=== PATIENT | female | born 1960 | race African-American/Black ===

== ENCOUNTER 2018-01-05 17:20 | Emergency (ER) | payer OTHER ==
[~2018-01-05] VITALS: Ht 175.3 cm; Wt 81.6 kg
[~2018-01-05 17:20] MED LIST: ASPIRIN81 MG; ATORVASTATIN CA20 MG PO; AZITHROMYCIN250 MG PO; CLONIDINE HCL0.1 MG PO; LISINOPRIL5 MG; TESSALON PERLE100 MG
--- OUTSIDE RECORDS SUMMARY | 2018-01-05 17:23 | XMS REPORT ---
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 Allergies, Adverse Reactions, Alerts This patient has no known allergies or adverse reactions. Medications This patient has no known medications. Encounters Start Date/Time End Date/Time Encounter Type Admission Type Attending [facility] Care Department Encounter ID 2017-06-04 00:00:00 2017-06-04 00:00:00 Outpatient [facility] [id number] 2017-05-25 00:00:00 2017-05-25 00:00:00 Outpatient [facility] [id number] 2017-04-23 10:09:39 2017-04-23 10:09:39 Outpatient [facility] [id number] 2017-04-23 10:02:23 2017-04-23 10:02:23 Outpatient [facility] [id number] 2017-04-23 08:25:18 2017-04-23 08:25:18 Outpatient [facility] [id number] 2017-04-16 00:00:00 2017-04-16 00:00:00 Outpatient [facility] [id number] 2017-04-09 00:00:00 2017-04-09 00:00:00 Outpatient [facility] [id number] 2017-04-08 00:00:00 2017-04-08 00:00:00 Outpatient [facility] [id number] 2017-04-06 00:00:00 2017-04-06 00:00:00 Outpatient [facility] [id number] 2017-04-02 00:00:00 2017-04-02 00:00:00 Outpatient [facility] [id number] 2017-03-18 06:44:18 2017-03-18 06:44:18 Outpatient [facility] [id number] 2017-03-05 00:00:00 2017-03-05 00:00:00 Outpatient [facility] [id number] 2017-03-03 14:35:40 2017-03-03 14:35:40 Outpatient [facility] [id number] 2017-02-13 12:43:56 2017-02-13 12:43:56 Outpatient [facility] [id number] 2017-01-09 09:31:40 2017-01-09 09:31:40 Outpatient [facility] [id number] 2017-01-09 09:31:07 2017-01-09 09:31:07 Outpatient [facility] [id number] 2017-01-09 08:25:39 2017-01-09 08:25:39 Outpatient [facility] [id number] Results Test Description Test Time Test Comments Text Results Atomic Results Result Comments CT CHEST W [place] [address] Patient Name: VARSHA FOOTE MR #: [id number] : 1960 Age/Sex: 56/F Req #: [id number] Adm Physician: Ordered by: JAY PEREZ MD Report #: [id number] Location: ER Room/Bed: Procedure: [id number] CT/CT CHEST W Exam Date: 04/24/17 Exam Time: 0200 REPORT STATUS: Signed EXAM: CT Chest WITH contrast 04/24/2017 1:34 AM INDICATION: Pulmonary embolism, shortness of breath, positive d-dimer COMPARISON: None TECHNIQUE: Chest was scanned utilizing a multidetector helical scanner from the lung apex through the level of the adrenal glands without administration of IV contrast. Coronal and sagittal reformations were obtained. Pulmonary embolism protocol protocol was performed. IV CONTRAST: 100 and mL of Isovue-370 RADIATION DOSE: Total DLP: 464.16 mGy*cm Estimated effective dose: (DLP x 0.014 x size factor ) mSv COMPLICATIONS: None FINDINGS: LINES/ TUBES: None. LUNGS AND AIRWAYS: The lungs are unremarkable. Airways are normal. PLEURA: The pleural spaces are clear. HEART AND MEDIASTINUM: The thyroid gland is normal. No mediastinal, hilar or axillary lymphadenopathy. The heart is mildly enlarged.. There is no pericardial effusion. The pulmonary artery is dilated measuring 4.1 cm in diameter compatible with pulmonary hypertension. The maximum dimension of the proximal ascending aorta is 4.3 cm. No evidence of pulmonary embolism. UPPER ABDOMEN: Cholecystectomy. Visualized liver, spleen, pancreas, upper pole of the kidneys and GI tract are normal. Postsurgical changes at the GE junction. BONES: The visualized bony thorax is within normal limits. SOFT TISSUES: Unremarkable. IMPRESSION: 1. No evidence of acute pulmonary embolism to the segmental level. 2. Dilated pulmonary artery suggestive of primary pulmonary hypertension. 3. Mild enlargement of the heart Signed by: Dr. Kwadwo Green M.D. on 04/24/2017 2:28 AM Dictated By: KWADWO TESFAYE MD 7 Transcribed By: ZION on 04/24/17227 COPY TO: JAY PEREZ MD
--- OUTSIDE RECORDS SUMMARY | 2018-01-05 17:23 | XMS REPORT | Clinical Summary ---
Author Author [facility] Address Unknown Phone Unavailable Care Team Providers Care Agent Producer Name Role Phone Asked, Pcp PCP Unavailable Allergies Active Allergy Reactions Severity Noted Date Comments Metronidazole GI Intolerance High 09/07/2017 Current Medications Prescription Sig. Disp. Refills Start End Date Status Date clonIDINE HCl (CATAPRES) TK 1 T PO BID 180 tablet 1 09/07/19 Active 0.2 MG tabletIndications: 18 Essential hypertension multivitamin with Take 1 tablet by mouth Active minerals tablet daily. ibuprofen (ADVIL) 200 MG Take 200 mg by mouth Active tablet every 6 (six) hours as needed for mild pain. clonIDINE HCl (CATAPRES) TK 1 T PO BID 0 08/28/19 09/07/19 Discontin 0.2 MG tablet 18 18 ued hydroCHLOROthiazide TK 1 T PO QD 1 07/24/20 09/07/19 Discontin (HYDRODIURIL) 25 MG 17 18 ued tablet hydroCHLOROthiazide TK 1 T PO QD 90 tablet 1 09/07/19 11/13/19 Discontin (HYDRODIURIL) 25 MG 18 18 ued tabletIndications: Essential hypertension clindamycin (CLEOCIN HCL) Take 1 capsule (300 mg 14 capsule 0 09/14/19 300 MG total) by mouth 2 (two) 18 18 capsuleIndications: Acute times a day for 7 days. vaginitis Active Problems Problem Noted Date Chronic hip pain, left 11/12/2017 Encounters Date Type Specialty Care Team Description 12/02/2017 Telephone Gastroenterology Qian Garg MA 11/12/2017 Office Visit Orthopedic Surgery Dejuan Moore MD Chronic left hip pain (Primary Dx) 10/02/2017 Telephone Family Medicine Karla Barbosa MA 09/07/2017 Office Visit Family Medicine Leigh Sampson PA Essential hypertension (Primary Dx); Acute vaginitis after 01/04/2017 Family History Medical History Relation Name Comments Hypertension Mother Relation Name Status Comments Father Mother Alive Social History Tobacco Use Types Packs/Day Years Used Date Never Smoker Smokeless Tobacco: Never Used Alcohol Use Drinks/Week oz/Week Comments No Sex Assigned at Date Recorded Not on file Last Filed Vital Signs Vital Sign Reading Time Taken Blood Pressure 152/100 09/07/2017 9:23 AM MINING CONSULTANT Pulse 80 09/07/2017 9:23 AM MINING CONSULTANT Temperature 36.6 C (97.9 F) 09/07/2017 9:23 AM MINING CONSULTANT Respiratory Rate - - Oxygen Saturation 100% 09/07/2017 9:23 AM MINING CONSULTANT Inhaled Oxygen - - Concentration Weight 83 kg (183 lb) 11/12/2017 8:41 AM CDT Height 175.3 cm (5' 9") 11/12/2017 8:41 AM CDT Body Mass Index 27.02 11/12/2017 8:41 AM CDT Plan of Treatment Health Maintenance Due Date Last Done Comments CERVICAL CANCER SCREENING 1980 COLON CANCER SCREENING 2009 SHINGRIX VACCINE (#1) 2009 BREAST CANCER SCREENING 06/13/2017 06/13/2015, 06/13/2015 INFLUENZA VACCINE 03/17/2018 Procedures Procedure Name Priority Date/Time Associated Diagnosis Comments [place] ARTHROCENTESIS Routine 11/12/2017 Chronic left hip pain Results for this ASPIR&/INJ MAJOR JT/BURSA 8:00 AM CDT procedure are in the W/O US results section. after 01/04/2017 Results * Large Joint Arthrocentesis (11/12/2017 8:00 AM) Narrative Dejuan Moore MD 11/12/20179:30 AM Large Joint Arthrocentesis Consent given by: patient Supporting Documentation Indications: pain Procedure Details Location: hip - L greater trochanteric bursa Left side: Needle size: 22 G Approach: lateral Left hip medications administered: 80 mg methylPREDNISolone acetate 80 mg/mL; 3 mL lidocaine 10 mg/mL (1 %) * Urinalysis, automated with microscopy (09/14/2017 10:42 AM) Component Value Ref Range Color, UA DARK YELLOW YELLOW Appearance CLEAR CLEAR Specific gravity, urine 1.023 1.001 - 1.035 pH, urine 6.5 5.0 - 8.0 Glucose, urine NEGATIVE NEGATIVE Bilirubin, UA NEGATIVE NEGATIVE Ketones, UA NEGATIVE NEGATIVE Occult blood, urine NEGATIVE NEGATIVE Protein, UA NEGATIVE NEGATIVE Nitrite, UA NEGATIVE NEGATIVE Leukocyte esterase, UA NEGATIVE NEGATIVE WBC, UA NONE SEEN < OR=5 /HPF RBC, UA NONE SEEN < OR=2 /HPF Squamous epithelial 0-5 < OR=5 /HPF cells, UA Bacteria, UA NONE SEEN NONE SEEN /HPF Hyaline casts, UA NONE SEEN NONE SEEN /LPF Specimen Performing Laboratory Urine [facility] Narrative SPLIT 09/14/2017 FROM [id number] * CBC with platelet and differential (09/14/2017 8:22 AM) Component Value Ref Range WBC 3.4 (L) 3.8 - 10.8 Thousand/uL RBC 4.74 3.80 - 5.10 Million/uL HGB 13.7 11.7 - 15.5 g/dL HCT 41.2 35.0 - 45.0 % MCV 86.9 80.0 - 100.0 fL MCH 28.9 27.0 - 33.0 pg MCHC 33.3 32.0 - 36.0 g/dL RDW 12.3 11.0 - 15.0 % Platelet count 181 140 - 400 Thousand/uL MPV 10.5 7.5 - 12.5 fL Neutrophils, absolute 1,459 (L) 1,500 - 7,800 cells/uL Lymphocytes, absolute 1,493 850 - 3,900 cells/uL Monocytes, absolute 320 200 - 950 cells/uL Eosinophils, absolute 109 15 - 500 cells/uL Basophils, absolute 20 0 - 200 cells/uL Neutrophils 42.9 % Lymphocytes 43.9 % Monocytes 9.4 % Eosinophils 3.2 % Basophils + RC 0.6 % Specimen Performing Laboratory Blood [facility] Narrative FASTING:YES PATIENT UNABLE TO VOID; ADVISED TO RETURN FOR COLLECTION. FASTING: YES * Thyroid stimulating hormone (09/14/2017 8:22 AM) Component Value Ref Range TSH 2.72 0.40 - 4.50 mIU/L Specimen Performing Laboratory Blood [facility] Narrative FASTING:YES PATIENT UNABLE TO VOID; ADVISED TO RETURN FOR COLLECTION. FASTING: YES * Hepatic function panel (09/14/2017 8:22 AM) Component Value Ref Range Protein 6.8 6.1 - 8.1 g/dL Albumin, S 3.9 3.6 - 5.1 g/dL Globulin, total 2.9 1.9 - 3.7 g/dL (calc) Albumin/globulin ratio 1.3 1.0 - 2.5 (calc) Total bilirubin 0.7 0.2 - 1.2 mg/dL Bilirubin direct 0.1 < OR=0.2 mg/dL Bilirubin, indirect 0.6 0.2 - 1.2 mg/dL (calc) Alkaline phosphatase 91 33 - 130 U/L AST 18 10 - 35 U/L ALT 13 6 - 29 U/L Specimen Performing Laboratory Blood [facility] Narrative FASTING:YES PATIENT UNABLE TO VOID; ADVISED TO RETURN FOR COLLECTION. FASTING: YES * Lipid panel (09/14/2017 8:22 AM) Component Value Ref Range Cholesterol, total 225 (H) <200 mg/dL HDL cholesterol 70 >50 mg/dL Triglycerides 111 <150 mg/dL LDL cholesterol 133 (H) mg/dL (calc) calculated Comment: Reference range: <100 Desirable range <100 mg/dL for patients with CHD or diabetes and <70 mg/dL for diabetic patients with known heart disease. LDL-C is now calculated using the Naima calculation, which is a validated novel method providing better accuracy than the Friedewald equation in the estimation of LDL-C. Raul WIGGINS et al. TEVIN. 2013;310(19): 2026-4051 (http://education.gBox.Believe.in/faq/TMQ020) Cholesterol/HDL ratio 3.2 <5.0 (calc) Non-HDL cholesterol 155 (H) <130 mg/dL (calc) Comment: For patients with diabetes plus 1 major ASCVD risk factor, treating to a non-HDL-C goal of <100 mg/dL (LDL-C of <70 mg/dL) is considered a therapeutic option. Specimen Performing Laboratory Blood [facility] Narrative FASTING:YES PATIENT UNABLE TO VOID; ADVISED TO RETURN FOR COLLECTION. FASTING: YES * Basic metabolic panel (09/14/2017 8:22 AM) Component Value Ref Range Glucose 114 (H) 65 - 99 mg/dL Comment: Fasting reference interval For someone without known diabetes, a glucose value between 100 and 125 mg/dL is consistent with prediabetes and should be confirmed with a follow-up test. BUN, whole blood 13 7 - 25 mg/dL Creatinine 0.78 0.50 - 1.05 mg/dL Comment: For patients >49 years of age, the reference limit for Creatinine is approximately 13% higher for people identified as -Macanese. EGFR Non-Afr. Macanese 84 > OR=60 mL/min/1.73m2 EGFR 97 > OR=60 mL/min/1.73m2 BUN/creatinine ratio NOT APPLICABLE 6 - 22 (calc) Sodium 140 135 - 146 mmol/L Potassium 4.2 3.5 - 5.3 mmol/L Chloride 101 98 - 110 mmol/L CO2 33 (H) 20 - 31 mmol/L Calcium 9.2 8.6 - 10.4 mg/dL Specimen Performing Laboratory Blood [facility] Narrative FASTING:YES PATIENT UNABLE TO VOID; ADVISED TO RETURN FOR COLLECTION. FASTING: YES after 01/04/2017 Insurance Payer Benefit Subscriber ID Type Phone Address Plan / Group [employer] C[employer] OPEN xxxxxxxxxxx HMO ACCESS/NET WORK
[2018-01-05] MEDS ORDERED: SODIUM CHLORIDE 0.9% 1000ML 1,000 ML IV STA (17:34)
[2018-01-05] MEDS ORDERED: METOCLOPRAMIDE HCL 10 MG/2ML VIAL IV ONE (17:45)
[2018-01-05] MEDS ORDERED: DIPHENHYDRAMINE HCL INJ 50 MG/ML VIAL IV ONE (17:45)
[2018-01-05] MEDS ORDERED: KETOROLAC TROMETHAMINE 30 MG/ML VIAL IV NR (17:45)
--- NOTE | 2018-01-05 18:27 | Diagnostic Imaging Report ---
EXAMINATION: Head CT HISTORY: Left-sided headache, dizziness, right leg burning COMPARISON: None. TECHNIQUE: Multidetector axial images were obtained without contrast from the foramen magnum to the vertex . The images were reconstructed using brain and bone algorithms. Thin section brain images were reformatted into coronal and sagittal planes. Intravenous contrast: None. Motion/streaking artifact limits the evaluation of the skull base and posterior cranial fossa. FINDINGS: Parenchyma: 1. Few scattered mostly bilateral frontal juxtacortical matter hypodensities, most likely nonspecific chronic microvascular ischemic changes. 2. No mass or hemorrhage. No CT evidence of acute territorial vascular insult. Extra-axial spaces:No abnormal density. No extra-axial fluid collections Brain volume: Normal for age. Ventricles: No hydrocephalus or displacement. Arteries: No density suggestive of thrombus. Dural sinuses: No abnormal density. Extra-axial spaces: No abnormal density. Foramen magnum: No mass, Chiari malformation, or basilar invagination. Sella: No obvious mass. Paranasal/mastoid sinuses: Imaged portions unremarkable. Skull/Scalp: No lytic or blastic lesions. No fractures. Incidental findings: Minimal chronic decompression of the left lamina papyracea likely sequela from remote trauma. IMPRESSION: Mild chronic microvascular ischemic. Otherwise no intracranial abnormalities. Signed by: Dr. Dana Giang M.D. on 01/05/2018 6:23 PM
[2018-01-05 18:47] LABS: BASOPHILS % 0.4 % (0.0-1.0); EOSINOPHILS # (AUTO) 0.1 (0.0-0.4); EOSINOPHILS % 1.1 % (0.0-6.0); HEMATOCRIT 45.2 % (34.2-44.1); HEMOGLOBIN 15.6 g/dL (12.0-16.0); LYMPHOCYTES # (AUTO) 1.5 (1.0-3.2); LYMPHOCYTES % 28.3 % (18.0-39.1); MEAN CORPUSCULAR HGB CONC 34.5 g/dL (31-35); MEAN CORPUSCULAR VOLUME 86.9 fL (81-99); MONOCYTES # (AUTO) 0.5 (0.2-0.8); MONOCYTES % 9.1 % (4.4-11.3); NEUTROPHILS # (AUTO) 3.2 (2.1-6.9); NEUTROPHILS % 60.7 % (38.7-80.0); PLATELET COUNT 187 x10e3/uL (140-360)
[2018-01-05 18:48] LABS: BILIRUBIN,URINE NEGATIVE (NEGATIVE); CLARITY,URINE CLEAR (CLEAR); COLOR,URINE YELLOW (YELLOW); KETONES,URINE NEGATIVE (NEGATIVE); LEUKOCYTE ESTERASE ,URINE TRACE (NEGATIVE); NITRITE,URINE NEGATIVE (NEGATIVE); PROTEIN,URINE DIPSTICK NEGATIVE (NEGATIVE); URINE UROBILINOGEN 0.2 mg/dL (0.2 - 1)
[2018-01-05 18:53] LABS: INR 1.05; PROTHROMBIN TIME 12.9 seconds (11.9-14.5)
[2018-01-05 18:54] LABS: PARTIAL THROMBOPLASTIN TIME 25.2 seconds (23.8-35.5)
[2018-01-05 18:59] LABS: EPITHELIAL CELLS,URINE FEW /LPF; MUCUS,URINE FEW (RARE); RBC,URINE 0-5 /HPF (0-5)
[2018-01-05 19:03] LABS: ALANINE AMINOTRANSFERASE 11 IU/L (0-55); ALBUMIN 4.6 g/dL (3.5-5.0); ALBUMIN/GLOBULIN RATIO 1.2 (0.8-2.0); ALKALINE PHOSPHATASE 129 IU/L (40-150); ANION GAP 15.2 mmol/L (8-16); BLOOD UREA NITROGEN 10 mg/dL (7-26); BUN/CREATININE RATIO 12 (6-25); CARBON DIOXIDE 28 mmol/L (22-29); CHLORIDE 95 mmol/L (98-107); CREATINE KINASE 214 IU/L (29-168); CREATININE, SERUM 0.81 mg/dL (0.57-1.11); EST GLOMERULAR FILTRATION RATE > 60 ML/MIN (60-); GLUCOSE 96 mg/dL (74-118); POTASSIUM 3.2 mmol/L (3.5-5.1); SODIUM 135 mmol/L (136-145)
[2018-01-05] MEDS ORDERED: HYDRALAZINE HCL 20 MG/ML VIAL IV NR (19:15)
[2018-01-05 21:35] VITALS: BP 157/67
== END 2018-01-05 21:47 | disposition home or self-care (01) ==
LOC: ER 17:20
DX: G44.219 Episodic tension-type headache, not intractable (principal); I10 Essential (primary) hypertension; Z86.711 Personal history of pulmonary embolism; Z95.828 Presence of other vascular implants and grafts
CPT/HCPCS: 36415; 70450; 80053; 81001; 82550; 82553; 84484; 85025; 85610; 85730; 87086; 93005; 93971; 96374; 99284; J0360; J1200; J1885; J2765; J7030